=== PATIENT | male | born 1970 | race Caucasian/White ===

== ENCOUNTER 2019-05-18 09:07 | Day surgery (SDC) | payer BC, OTHER ==
[2019-05-14 15:12] VITALS: BMI 32.8
[2019-05-18] MEDS ORDERED: PROPOFOL 20 ML ONE (10:30)
[2019-05-18 11:09] VITALS: TEMP 98
[2019-05-18 11:16] VITALS: BP 131/71; PULSE 63
--- NOTE | 2019-05-20 18:18 | PATH ---
Surgical Pathology Report Patient Name: DANE MEJIA [facility]. Rec. #: [id number] /Age/Gender: 1970 (Age: 48) / M Account: [id number] Location: [facility] Taken: 05/18/2019 Received: 05/18/2019 Reported: 05/20/2019 Physicians: Randy Marie M.D. Specimen(s) Received POLYP CECUM Clinical History Screening Postoperative diagnosis: Colon polyp, diverticulosis Final Diagnosis CECUM, POLYP, BIOPSY: SESSILE SERRATED POLYP. Electronically Signed Vijaya Webster M.D. Gross Description Received in formalin, labeled "polyp cecum" is a betts, irregular portion of soft tissue measuring 0.6 cm. in greatest dimension. The base of the polyp is inked in blue. The specimen is bisected and entirely submitted in one cassette. MLSZ/05/19/2019 sanml/05/19/2019
== END 2019-05-18 11:30 | disposition home or self-care (01) ==
LOC: FASU-ENDO 09:07
PROVIDERS: ATTEND Internal Medicine Gastroenterology
PROC: 0DBH8ZX Excision of Cecum, Via Natural or Artificial Opening Endoscopic, Diagnostic (ICD-10-PCS; principal; 2019-05-18 10:22)
DX: Z12.11 Encounter for screening for malignant neoplasm of colon (principal); D12.0 Benign neoplasm of cecum; K57.30 Diverticulosis of large intestine without perforation or abscess without bleeding
CPT/HCPCS: 88305-TC